=== PATIENT | male | born 1955 | race Caucasian/White ===

== ENCOUNTER 2017-09-10 07:03 | Observation (INO) | payer OTHER ==
[2017-09-10 08:35] LABS: HEMATOCRIT 26.1 % (42.0-52.0); HEMOGLOBIN 8.1 g/dl (14.0-18.0); MEAN CORPUSCULAR HEMOGLOBIN 25.6 pg (29.0-33.0); MEAN CORPUSCULAR VOLUME 82.3 fl (82.0-101.0); MEAN PLATELET VOLUME 10.8 fl (7.4-10.4); PLATELET COUNT 208 10^3/UL (140-415); RED BLOOD COUNT 3.17 10^6/ul (4.70-6.10); RED CELL DISTRIBUTION WIDTH 14.8 % (11.5-14.5)
[2017-09-10 08:35] LABS: WHITE BLOOD COUNT 10.1 10^3/ul (4.8-10.8)
[2017-09-10 08:46] LABS: ADD MAN DIFF? NO
[2017-09-10 08:50] LABS: SEGMENTED NEUTROPHILS (M) % 86 % (39-77)
[2017-09-10 08:51] LABS: BASOPHILS % (M) 0.7 % (0.0-2.0); EOSINOPHILS % (M) 1 % (0.0-7.0); LYMPHOCYTES #M 0.7 10^3/ul (0.8-2.9); LYMPHOCYTES % (M) 7 % (15-51); MONOCYTE #M 0.5 10^3/ul (0.3-0.9); MONOCYTES % (M) 5 % (0-11)
[2017-09-10 08:52] LABS: BASOPHIL #M 0.7 10^3/ul (0.0-0.0); SEG NEUT #M 8.7 10^3/ul (1.7-7.5)
[2017-09-10 08:53] LABS: BASOPHILS % 0.7 % (0.0-2.0); EOSINOPHILS % 1.4 % (0.0-7.0); MONOCYTES % 4.5 % (0.0-11.0); NEUTROPHILS % 86.1 % (39.0-77.0)
[2017-09-10] MEDS ORDERED: FENTAnyl 50 MCG/ML VIAL (09:01)
[2017-09-10] MEDS ORDERED: IODIXANOL LOCM 100 ML BTL ×2 (09:01→10:38)
[2017-09-10] MEDS ORDERED: HEPARIN 1000 UNITS/ML 10 ML INJ (09:01)
[2017-09-10] MEDS ORDERED: LIDOCAINE 1% (MDV) 20 ML INJ (09:01)
[2017-09-10] MEDS ORDERED: NITROGLYCERIN (IC) 100 MCG/ML INJ (09:02)
[2017-09-10] MEDS ORDERED: MIDAZOLAM 1 MG/ML 2 ML INJ (09:02)
[2017-09-10] MEDS ORDERED: VERAPAMIL 5 MG INJ (09:02)
[2017-09-10 09:03] LABS: INR 1.04; PARTIAL THROMBOPLASTIN TIME 28.6 Sec (25.0-35.0); PROTIME 13.7 Sec (11.9-14.9); PT RATIO 1.1
[2017-09-10 09:05] LABS: ANION GAP 17 (8-16); CARBON DIOXIDE 25 mmol/L (21-31); CHLORIDE 103 mmol/L (97-110); GLUCOSE 180 mg/dl (70-220)
[2017-09-10 09:07] LABS: BLOOD UREA NITROGEN 67 mg/dl (7-20); CALCIUM 8.2 mg/dl (8.4-10.2); CREATININE 9.02 mg/dl (0.61-1.24); POTASSIUM 4.7 mmol/L (3.5-5.1); SODIUM 140 mmol/L (135-144)
[2017-09-10] MEDS ORDERED: hydrALAzine 20 MG INJ (10:58)
[2017-09-10] MEDS ORDERED: AL HYDROX/MG HYDROX/SIMETH 30 ML CUP PO (11:00)
[2017-09-10] MEDS: ACCU-CHEK XX ×3 (11:30→21:31)
[2017-09-10] MEDS: ONDANSETRON 4 MG INJ IV (12:43)
[2017-09-10] MEDS: ACETAMINOPHEN 325 MG TAB PO (13:09)
[2017-09-10] MEDS ORDERED: EPOETIN 10000 UNITS/1 ML INJ (ESRD) SC (14:00)
[2017-09-10] MEDS ORDERED: DEXTROSE 50% 50 ML SYRINGE IV ×2 (21:30)
[2017-09-10] MEDS ORDERED: GLUCOSE GEL 15 GRAM TUBE BUCCAL (21:30)
[2017-09-10] MEDS ORDERED: GLUCOSE GEL 15 GRAM TUBE PO ×2 (21:30)
[2017-09-10] MEDS ORDERED: GLUCAGON 1 MG INJ IM (21:30)
[2017-09-10] MEDS: INSULIN ASPART [NOVOLOG] 3 ML PEN SC (22:46)
[2017-09-11] MEDS: ACCU-CHEK XX (01:39)
[2017-09-11] MEDS ORDERED: INSULIN ASPART [NOVOLOG] 3 ML PEN SC (08:00)
[2017-09-11 08:31] LABS: ADD MAN DIFF? NO
[2017-09-11 08:38] LABS: BASOPHIL # 0.1 10^3/ul (0.0-0.1); BASOPHILS % 0.8 % (0.0-2.0); EOSINOPHILS # 0.2 10^3/ul (0.0-0.5); EOSINOPHILS % 1.7 % (0.0-7.0); HEMATOCRIT 26.4 % (42.0-52.0); HEMOGLOBIN 8.2 g/dl (14.0-18.0); LYMPHOCYTES # 0.7 10^3/ul (0.8-2.9); LYMPHOCYTES % 6.8 % (15.0-51.0); MEAN CORPUSCULAR HEMOGLOBIN 25.5 pg (29.0-33.0); MEAN CORPUSCULAR HGB CONC 31.1 g/dl (32.0-37.0); MEAN PLATELET VOLUME 10.9 fl (7.4-10.4); MONOCYTE # 0.5 10^3/ul (0.3-0.9); MONOCYTES % 4.7 % (0.0-11.0); NEUTROPHIL # 8.2 10^3/ul (1.6-7.5); NEUTROPHILS % 85.6 % (39.0-77.0); PLATELET COUNT 202 10^3/UL (140-415); RED BLOOD COUNT 3.22 10^6/ul (4.70-6.10); RED CELL DISTRIBUTION WIDTH 15.2 % (11.5-14.5)
[2017-09-11 08:38] LABS: WHITE BLOOD COUNT 9.6 10^3/ul (4.8-10.8)
[2017-09-11 08:50] LABS: ANION GAP 19 (8-16); BLOOD UREA NITROGEN 75 mg/dl (7-20); CALCIUM 8.5 mg/dl (8.4-10.2); CARBON DIOXIDE 21 mmol/L (21-31); CHLORIDE 102 mmol/L (97-110); CREATININE 10.39 mg/dl (0.61-1.24); GLUCOSE 167 mg/dl (70-220); MAGNESIUM 1.9 mg/dl (1.7-2.5); PHOSPHORUS 5.9 mg/dl (2.5-4.9); SODIUM 137 mmol/L (135-144)
== END 2017-09-11 07:59 | disposition left against medical advice (07) ==
LOC: SDS 07:03 → MS4 10:58
DX: I25.10 Atherosclerotic heart disease of native coronary artery without angina pectoris (principal); I12.0 Hypertensive chronic kidney disease with stage 5 chronic kidney disease or end stage renal disease; N18.6 End stage renal disease; Z99.2 Dependence on renal dialysis; E11.9 Type 2 diabetes mellitus without complications; I42.9 Cardiomyopathy, unspecified; E78.5 Hyperlipidemia, unspecified; I25.2 Old myocardial infarction; Z95.1 Presence of aortocoronary bypass graft; Z79.82 Long term (current) use of aspirin; D64.9 Anemia, unspecified; E83.50 Unspecified disorder of calcium metabolism; Z53.21 Procedure and treatment not carried out due to patient leaving prior to being seen by health care provider
CPT/HCPCS: 80048; 82962; 83735; 84100; 85025; 85610; 85730; 93005; 93459; G0378